=== PATIENT | female | born 1980 | race Caucasian/White ===

== ENCOUNTER 2016-10-17 04:33 | Emergency (ER) | payer OTHER ==
[~2016-10-17] VITALS: Ht 167.6 cm; Wt 68.1 kg
[2016-10-17 04:36] VITALS: BP 126/75; PULSE 77; RESP 16; O2SAT 98
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
[2016-10-17] MEDS ORDERED: IBUP-1827 PO (05:30)
[2016-10-17 05:52] VITALS: BP 120/72; PULSE 75; RESP 18; O2SAT 97
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
== END 2016-10-17 05:53 | disposition home or self-care (01) ==
LOC: SED 04:33
DX: S20.212A Contusion of left front wall of thorax, initial encounter (principal); S00.11XA Contusion of right eyelid and periocular area, initial encounter; S40.012A Contusion of left shoulder, initial encounter; S50.11XA Contusion of right forearm, initial encounter; S40.022A Contusion of left upper arm, initial encounter; S70.01XA Contusion of right hip, initial encounter; S80.11XA Contusion of right lower leg, initial encounter; S20.02XA Contusion of left breast, initial encounter; T74.11XA Adult physical abuse, confirmed, initial encounter; Y04.8XXA Assault by other bodily force, initial encounter; Y07.01 Husband, perpetrator of maltreatment and neglect; Y92.9 Unspecified place or not applicable; Y93.89 Activity, other specified; Y99.8 Other external cause status; F17.200 Nicotine dependence, unspecified, uncomplicated